=== PATIENT | female | born 1975 | race Caucasian/White ===

== ENCOUNTER 2017-09-18 20:15 | Emergency (ER) | payer OTHER ==
[~2017-09-18] VITALS: Ht 167.6 cm; Wt 81.7 kg
[~2017-09-18 20:15] MED LIST: MTR600X PO; OXYC-57 PO; PRENTAB26 PO
[2017-09-18 20:21] VITALS: TEMP 36.5; Ht 167.6 cm; Wt 81.7 kg
[2017-09-18] MEDS ORDERED: ONDANSETRON INJ 2 MG/ML 2 ML VIAL IV STA ×2 (20:25→22:06)
[2017-09-18] MEDS: HYDROmorphone INJ 0.5 MG/0.5 ML SYR IV PRN ×3 (20:32→21:42)
--- NOTE | 2017-09-18 21:00 | DIAGNOSTIC IMAGING REPORT ---
R WRIST MIN 3 VIEWS ROUTINE HISTORY: 41 years-old Female Trauma acute right wrist pain status post trauma. COMPARISON: None available TECHNIQUE: 4 views of the right wrist FINDINGS: There is an acute comminuted fracture of the distal radial metaphysis with fracture extension into the distal radioulnar joint. There is 3 mm and dorsal and 2 mm lateral cortical buckling. No significant angulation. No definite intra-articular extension into the radiocarpal joint. Acute fracture of the ulnar styloid is also present, displaced distally 2 mm. The carpal bones appear intact. Mild soft tissue swelling about the distal forearm and wrist. IMPRESSION: 1. Acute comminuted minimally displaced fracture of the distal radius with fracture extension into the distal radial ulnar joint. 2. Acute minimally displaced fracture of the ulnar styloid. The above report was generated using voice recognition software. It may contain grammatical, syntax or spelling errors. Electronically signed by: Osorio Elise M.D. 09/18/2017 8:58 PM Dictated Date/Time: 09/18/2017 8:56 PM
[2017-09-18] MEDS ORDERED: CETI10TA84 PO (21:02)
[2017-09-18] MEDS ORDERED: BCPILLS PO (21:02)
--- NOTE | 2017-09-18 22:10 | DIAGNOSTIC IMAGING REPORT ---
R ELBOW MIN 3 VIEWS ROUTINE HISTORY: 41 years-old Female RIGHT ELBOW PAIN-FALL acute right elbow pain status post fall COMPARISON: None available TECHNIQUE: 3 views of the right elbow FINDINGS: There is no acute fracture, dislocation or significant degenerative changes. No large joint effusion or radiopaque foreign body. Mild soft tissue swelling is noted posterior medially. IMPRESSION: Mild posterior medial soft tissue swelling without acute fracture or dislocation. The above report was generated using voice recognition software. It may contain grammatical, syntax or spelling errors. Electronically signed by: Osorio Elise M.D. 09/18/2017 10:08 PM Dictated Date/Time: 09/18/2017 10:07 PM
[2017-09-18] MEDS ORDERED: ONDANSETRON HOME PACK 4MG OD TAB PO ONE (22:15)
[2017-09-18] MEDS ORDERED: OXYCODONE IR HOME PACK PO ONE (22:15)
[2017-09-18] MEDS ORDERED: OXYC1TAB3 PO (22:51)
[2017-09-18 23:24] VITALS: BP 116/68; PULSE 78; O2SAT 98
--- NOTE | 2017-09-19 03:24 | EMERGENCY ROOM VISIT NOTE ---
History Report prepared by Maximinoibsherlyn: Efrem Ghotra Under the Supervision of: Dr. Clive Yee M.D. First contact with patient: 20:18 Chief Complaint: WRIST PAIN Stated Complaint: FALL,RIGHT WRIST INJURY History of Present Illness The patient is a 41 year old female who presents to the Emergency Room with complaints of constant right wrist pain s/p fall occurring shortly prior to arrival. She states that she was roller skating when she fell backwards onto her outstretched hand. She fell onto her buttocks after her wrist cushioned the fall. The patient did not hit her head or lose consciousness. She states that her wrist appears deformed. She states that her pain has been so great that she vomited, and now continues to feel nauseous. The patient rates her current pain as a 7/10 but states that it increased with movement. She denies any other trauma. Pt denies LOC, headache, visual changes, neck pain, chest pain, breathing difficulties, current nausea, abdominal pain, back pain, other extremity pain, numbness, weakness, open wounds, active bleeding, or other complaints. Source of History: patient Onset: Shortly prior to arrival Position: wrist (right) Symptom Intensity: 7/10 Timing: constant Modifying Factors (Worsening): movement Associated Symptoms: + nausea, + vomiting, No abdominal pain Note: The patient denies pain to her other extremities. Review of Systems See HPI for pertinent positives and negatives. A total of ten systems were reviewed and were otherwise negative. Past Medical & Surgical Medical Problems: (1) Hypomagnesemia (2) No Known Active Medical Problems (3) (4) Spontaneous rupture of amiotic membranes (5) Vomiting and diarrhea (6) Vomiting and diarrhea Surgical Problems: (1) Previous delivery affecting , antepartum Family History No pertinent family history stated. Social History Smoking Status: Never Smoker Alcohol Use: occasionally Drug Use: none Marital Status: Housing Status: lives with family Occupation Status: employed Current/Historical Medications Scheduled Control Pills ( Control Pills), 1 TAB PO DAILY Cetirizine (Zyrtec), 10 MG PO DAILY Scheduled PRN Oxycodone Ir (Roxicodone Ir), 1-2 TAB PO Q4H PRN for Severe Pain Allergies Coded Allergies: Sulfa Drugs (Unverified Allergy, Intermediate, RASH, 09/18/17) Physical Exam Vital Signs Date Time Temp Pulse Resp B/P (MAP) Pulse Ox O2 Delivery O2 Flow Rate FiO2 09/18/17 23:24 78 20 116/68 98 09/18/17 22:17 62 20 114/61 98 Room Air 09/18/17 21:10 58 20 122/70 97 Room Air 09/18/17 20:33 67 09/18/17 20:21 36.5 61 18 121/69 99 Room Air Physical Exam GENERAL: Awake, alert, uncomfortable appearing, in no acute distress HEAD: Normocephalic, atraumatic. No barrientos sign. No raccoon eyes. EYES: Normal conjunctiva. PERRL. EARS: External ears normal. Right TM normal. Left TM normal. NOSE: Atraumatic OROPHARYNX: Lips, tongue, and mucosa unremarkable. No erythema or exudate. NECK: Full ROM. No tracheal deviation or JVD. No posterior midline tenderness. No step offs noted. RESPIRATORY: CTA bilaterally CARDIAC: Normal rate, normal rhythm. ABDOMEN: Inspection reveals no abnormalities. Soft, non distended. No tenderness to palpation. No hernias. BACK: No midline step offs or tenderness to palpation. Unremarkable. PELVIS: Stable to rock. SKIN: Normal. LYMPH: No adenopathy. MUSCULOSKELETAL: Swelling over the radial aspect of the right wrist. No snuff box tenderness. No tenderness with axial loading of the thumb. Tenderness of the radial aspect. RUE NVI over all dermatomes and myotomes. Remainder of upper and lower extremities are atraumatic. NEURO: GCS 15. Normal sensorium. No sensory or motor deficits noted. Medical Decision & Procedures ER Provider Diagnostic Interpretation: Radiology results as stated below per my review and radiologist interpretation: R WRIST MIN 3 VIEWS ROUTINE HISTORY: 41 years-old Female Trauma acute right wrist pain status post trauma. COMPARISON: None available TECHNIQUE: 4 views of the right wrist FINDINGS: There is an acute comminuted fracture of the distal radial metaphysis with fracture extension into the distal radioulnar joint. There is 3 mm and dorsal and 2 mm lateral cortical buckling. No significant angulation. No definite intra-articular extension into the radiocarpal joint. Acute fracture of the ulnar styloid is also present, displaced distally 2 mm. The carpal bones appear intact. Mild soft tissue swelling about the distal forearm and wrist. IMPRESSION: 1. Acute comminuted minimally displaced fracture of the distal radius with fracture extension into the distal radial ulnar joint. 2. Acute minimally displaced fracture of the ulnar styloid. The above report was generated using voice recognition software. It may contain grammatical, syntax or spelling errors. Electronically signed by: Osorio Elise M.D. 09/18/2017 8:58 PM Radiology results as stated below per my review and radiologist interpretation: R ELBOW MIN 3 VIEWS ROUTINE HISTORY: 41 years-old Female RIGHT ELBOW PAIN-FALL acute right elbow pain status post fall COMPARISON: None available TECHNIQUE: 3 views of the right elbow FINDINGS: There is no acute fracture, dislocation or significant degenerative changes. No large joint effusion or radiopaque foreign body. Mild soft tissue swelling is noted posterior medially. IMPRESSION: Mild posterior medial soft tissue swelling without acute fracture or dislocation. The above report was generated using voice recognition software. It may contain grammatical, syntax or spelling errors. Electronically signed by: Osorio Elise M.D. 09/18/2017 10:08 PM Medications Administered Medications (Trade) Dose Ordered Sig/Florinda Route Start Time Stop Time Status Last Admin Dose Admin Ondansetron HCl (Zofran Inj) 4 mg NOW STAT IV 09/18/17 20:25 09/18/17 20:28 DC 09/18/17 20:31 4 MG Hydromorphone HCl (Dilaudid Inj) 0.5 mg Q10M PRN IV 09/18/17 20:30 09/19/17 00:07 DC 09/18/17 21:42 0.5 MG Ondansetron HCl (Zofran Inj) 4 mg NOW STAT IV 09/18/17 22:06 09/18/17 22:07 DC 09/18/17 22:15 4 MG Ondansetron HCl (ZOFRAN ODT 4MG Home Pack) 1 homepack UD ONCE PO 09/18/17 22:15 09/18/17 22:16 DC 09/18/17 22:14 1 HOMEPACK Oxycodone HCl (Roxicodone Immediate Rel 5MG Home Pack) 1 homepack UD ONCE PO 09/18/17 22:15 09/18/17 22:16 DC 09/18/17 22:15 1 HOMEPACK Procedure Splinting Indication: Fracture Verbal consent obtained. Risks and benefits were explained with the usual customary discussion. The injured extremity was identified. The patient was prepped and measured for the placement of a volar ortho-glass splint. Splint applied in the standard fashion over a layer of webril and secured using an elastic bandage. Set into a position of function. Normal neurovascular status after placement verified by me. The patient tolerated the procedure well and the care of the splint was discussed with the patient/family. No complications. ED Course 2018: The patient was evaluated in room A1. A complete history and physical exam was performed. 2024: Zofran 4 mg IV. 2029: Dilaudid 0.5 mg IV. 2111: I discussed the patients case with Dr. Guardado, [facility]. He will review the X-rays and call me back. 2109: I reassessed the patient. She is feeling much better. 2204: I reevaluated the patient. She requested Zofran. I will place orders. 2205: Zofran 4 mg IV. 2214: Oxycodone HCl 5 mg 1 homepack PO, Oxycodone HCl 4 mg 1 homepack PO. 2234: I reevaluated the patient. She is resting comfortably. I performed a splinting procedure. See procedure note for further details. 2299: I reevaluated the patient. She is feeling well and resting comfortably. I discussed her results and discharge instructions and she verbalized complete understanding and agreement. Medical Decision Triage Nursing notes reviewed. The patient's presentation and history were concerning for a fall and wrist pain. Etiologies such as soft tissue injury, fracture, dislocation, neurovascular compromise, compartment syndrome, as well as others were entertained. The patient was evaluated. She noticed deformity of the right wrist. No other injury was sustained. She was neurovascular intact over all dermatomes and myotomes. There are no open wounds to suggest open fracture. She had an IV established. She was given Zofran and Dilaudid. She was doing better with this. X-ray imaging was performed which revealed the distal radius and ulnar styloid fracture. The patient had a splint placed by me. She had a consultation with orthopedics, Dr. Guardado. He felt the patient will do well with conservative management. No surgical intervention was recommended at this time. He agreed with splinting and close follow-up in the office first thing on Thursday. The patient was given a home pack of Zofran and oxycodone. Prescription for additional oxycodone was sent to her pharmacy. Just prior to the patient leaving she became nauseated and vomited. After vomiting she felt much better and was tolerating oral intake. By the evaluation outlined above other emergent etiologies such as those listed in the differential, as well as others, were deemed relatively unlikely. The patient was educated about the findings as listed above. All questions were answered and the patient was pleased with the treatment. Return instructions were outlined and the patient was discharged in stable condition. The patient was referred to Dr. Guardado of orthopedics for follow-up for a recheck of the current condition. Medication Reconcilliation Current Medication List: was personally reviewed by me Blood Pressure Screening Patient's blood pressure: Normal blood pressure Blood pressure disposition: Did not require urgent referral Consults Time Called: 2109 Consulting Physician: Dr. Guardado, [facility] Returned Call: 2111 I discussed the patients case with Dr. Guardado, [facility]. He will review the X-rays and call me back. Impression Primary Impression: Right wrist fracture Scribe Attestation The scribe's documentation has been prepared under my direction and personally reviewed by me in its entirety. I confirm that the note above accurately reflects all work, treatment, procedures, and medical decision making performed by me. Departure Information Dispostion Home / Self-Care Prescriptions Oxycodone Ir (Roxicodone Ir) 5 Mg Tab 1-2 TAB PO Q4H Y for Severe Pain, #24 TAB Prov: Clive Yee MD 09/18/17 Referrals Elba Alva M.D. (PCP) Patient Instructions [facility] Additional Instructions ORTHOPEDIC INSTRUCTIONS: DO NOT drive, drink alcohol, operate machinery, or perform dangerous activities today. You were given medications in the ER that can affect your ability to safely function or operate a vehicle. Oxycodone (OxyIR) 5mg: Take 1-2 pills every four hours for breakthrough pain. Avoid alcohol, operating machinery or dangerous equipment, working on ladders or roofs, DRIVING, or situations where being under the influence may be dangerous. It is recommended to use an [id number] stool softener such as Colace, 100mg twice daily while taking this medication to avoid constipation. Zofran 4 mg oral dissolving tablets: take one tablet and allow it to melt in your mouth every 4 hours as needed for nausea. Ibuprofen(Motrin, Advil) may be used for fever or pain. Use 600mg every six hours as needed. Take with food. Avoid using more than 2400mg in a 24 hour period. Do not use 2400mg per day for more than three consecutive days without physician direction. Prolonged inappropriate use can lead to stomach upset or ulcers. (AND/OR) Acetaminophen(Tylenol) may be used for fever or pain. Use 1000mg every six hours as needed. Avoid using more than 4000mg in a 24 hour period. Ice compresses for 20 minutes at a time four times daily for 2-3 days. Use the sling as instructed. Remove your arm from the sling 4-6 times a day and move all the joints around to keep them loose. Rest and elevate your injury. Do not get the splint wet. If your splint feels excessively tight, you have worsening pain, develop numbness or tingling, or your digits appear blue, loosen the kg wrap. Then reapply the kg wrap gently without removing the splint. If your symptoms are not quickly relieved return to the ER for re- evaluation. Return to the ER immediately for any numbness, tingling, severe pain, extreme swelling in the extremity or as needed. Call [facility], [phone], Thursday morning to arrange follow up for your injury.
== END 2017-09-18 23:24 ==
LOC: C.EDB 20:16 → C.EDA 23:24
DX: S62.101A Fracture of unspecified carpal bone, right wrist, initial encounter for closed fracture (principal); W19.XXXA Unspecified fall, initial encounter; Y93.51 Activity, roller skating (inline) and skateboarding; Z88.2 Allergy status to sulfonamides